=== PATIENT | female | born 1955 | race Caucasian/White ===

== ENCOUNTER 2017-10-20 00:29 | Emergency (ER) | payer OTHER ==
[~2017-10-20 00:29] MED LIST: LORTA5 PO; ORPH100T PO; Z.0.NO CURRENT MEDS
[2017-10-20 00:31] VITALS: BP 149/87; PULSE 78; RESP 18; TEMP 97.7; O2SAT 97
[2017-10-20 03:45] VITALS: BP 177/80; PULSE 73; RESP 16; TEMP 98; O2SAT 100
--- NOTE | 2017-10-20 04:15 | PD ---
HPI Chief Complaint: Injury Time Seen by Provider: 04:11 Travel History International Travel<30 days: No Contact w/Intl Traveler<30days: No Traveled to known affect area: No History of Present Illness HPI 62-year-old female presents to the emergency department from hospital upstairs where she had a non-syncopal accidental slip and fall. Patient states that she fell to her right side and put down her elbow to prevent hitting her head. Patient did not hit her head did not lose consciousness did not injure her neck did not injure her back did not injure her chest did not injure her ribs did not injure her abdomen or pelvis denies shortness of breath and states she landed on her right elbow where she has had previous surgery in May and on her right knee with patient does not have any limitation on range of motion of the elbow and does not notice any swelling and does not note any new distal numbness tingling or weakness although she has had some chronic numbness tingling or weakness although she has had some numbness in the hand prior to and since her elbow surgery in May. Patient denies any knee pain other than it was sore when she transferred from the floor to the wheelchair and then walked to the emergency room. PFSH Past Medical History Narrative Medical Hypertension bilateral elbow surgery knee surgery; nursing notes reviewed Hypertension: Yes Social History Alcohol Use: No Tobacco Use: No Allergies-Medications (Allergen,Severity, Reaction): Coded Allergies: erythromycin base (Unverified Adverse Reaction, Severe, Nausea/Vomiting, ) Reported Meds & Prescriptions Reported Meds & Active Scripts Active Norflex (Orphenadrine Citrate) 100 Mg Nathan 100 Mg PO BID PRN Lortab 5/325 Tab (Hydrocodone-Acetaminophen) 1 Tab Tab 1 Tab PO Q4 PRN Reported No Current Meds (Miscellaneous Medication) Misc Review of Systems Except as stated in HPI: all other systems reviewed are Neg Physical Exam Narrative GENERAL: Well-developed well-nourished female no acute distress no respiratory distress SKIN: Warm and dry. HEAD: Normocephalic. EYES: No scleral icterus. No injection or drainage. NECK: Supple, trachea midline. No JVD or lymphadenopathy. CARDIOVASCULAR: Regular rate and rhythm without murmurs, gallops, or rubs. RESPIRATORY: Breath sounds equal bilaterally. No accessory muscle use. GASTROINTESTINAL: Abdomen soft, non-tender, nondistended. MUSCULOSKELETAL: No cyanosis, or edema. Attention right upper extremity patient has intact elbow flexion extension pronation supination superficial abrasion to the elbow no soft tissue swelling ecchymosis or deformity distally extremity is neurovascular tendon intact capillary refill is less than 2 seconds radial ulnar pulses are 2+ to palpation; attention left knee no ecchymosis no effusion no ballotable effusion no induration no tenderness to palpation intact flexion extension distal extremities neurovascular tendon intact BACK: Nontender without obvious deformity. No CVA tenderness. Data Data Last Documented VS Vital Signs Date Time Temp Pulse Resp B/P (MAP) Pulse Ox O2 Delivery O2 Flow Rate FiO2 10/20/17 03:45 98.0 73 16 177/80 (112) 100 Room Air Orders Orders Ice/Cold Pack (10/20/17 04:11) Knee, Complete (4vws) (10/20/17 ) Elbow, Complete (4 Vws) (10/20/17 ) Splint Or Brace Apply/Monitor (10/20/17 06:29) Ed Discharge Order (10/20/17 06:31) [facility] Medical Decision Making Medical Screen Exam Complete: Yes Emergency Medical Condition: Yes Medical Record Reviewed: Yes Interpretation(s) Last Impressions Knee X-Ray 10/20/17 0000 Signed Impressions: CONCLUSION: No acute abnormality seen. Elbow X-Ray 10/20/17 0000 Signed Impressions: CONCLUSION: Degenerative change with spurring seen throughout the elbow. Elbow effusion. This could be posttraumatic or related to the pre-existing dege nerative change. An occult fracture cannot be excluded. A distinct fracture is not seen. Vital Signs Date Time Temp Pulse Resp B/P (MAP) Pulse Ox O2 Delivery O2 Flow Rate FiO2 10/20/17 03:45 98.0 73 16 177/80 (112) 100 Room Air 10/20/17 00:31 97.7 78 18 149/87 (107) 97 Differential Diagnosis Elbow contusion, fracture, subluxation; knee contusion fracture subluxation Narrative Course Ice pack applied imaging studies ordered Patient informed of imaging results including effusion to the right elbow although patient denies any pain at this time suspicion is low for occult fracture however in view of history of recent surgery will apply sling and encourage patient to follow-up with her orthopedic surgeon and did land call office in a.m. patient is aware of her and is stable for outpatient management Diagnosis Primary Impression: Elbow contusion Qualified Codes: S50.01XA - Contusion of right elbow, initial encounter Additional Impressions: Knee contusion Qualified Codes: S80.01XA - Contusion of right knee, initial encounter Occult fracture of elbow Referrals: Orthopaedic Surgeon 1 day Patient Instructions: General Instructions Additional Instructions: Follow-up with your orthopedic surgeon regarding elbow injury Apply ice intermittently for first 1224 hrs. to elbow Wear sling to right upper extremity May take as tolerated acetaminophen and/or ibuprofen for pain relief Return to the emergency department concerns or change in condition Disposition: 01 DISCHARGE HOME Condition: Stable Maddi Lockett MD Oct 20, 2017 04:15
--- NOTE | 2017-10-20 06:14 | RADRPT ---
EXAM DATE: 10/20/2017 5:40 AM EDT AGE/SEX: 62 years / Female INDICATIONS: Pain post fall. CLINICAL DATA: This is the patient's initial encounter. Patient reports that signs and symptoms have been present for 1 day and indicates a pain score of 10/10. MEDICAL/SURGICAL HISTORY: . . Right knee replaced and right elbow surgery. COMPARISON: No prior [facility] exams available for comparison. FINDINGS: The patient is status post total knee replacement. The prosthetic components appear well placed. A fr acture is not seen. No effusion is seen. CONCLUSION: No acute abnormality seen. Electronically signed by: Fran Humphries MD 10/20/2017 6:12 AM EDT
--- NOTE | 2017-10-20 06:17 | RADRPT ---
EXAM DATE: 10/20/2017 5:42 AM EDT AGE/SEX: 62 years / Female INDICATIONS: Pain post fall. CLINICAL DATA: This is the patient's initial encounter. Patient reports that signs and symptoms have been present for 1 day and indicates a pain score of 10/10. MEDICAL/SURGICAL HISTORY: . . Right knee and right elbow surgery. COMPARISON: No prior [facility] exams available for comparison. FINDINGS: There is degenerative change at the elbow joint with hypertrophic change seen at the distal humerus, at the proximal ulna, and around the radial head. There is a small 0.5 cm bony density seen adjacent to the olecranon likely related to a small loose body. There is minimal hypertrophic change adjacent to the medial condyle. There is an elbow effusion. A fracture is not clearly seen. CONCLUSION: Degenerative change with spurring seen throughout the elbow. Elbow effusion. This could be posttraumatic or related to the pre-existing degenerative change. An oc cult fracture cannot be excluded. A distinct fracture is not seen. Electronically signed by: Fran Humphries MD 10/20/2017 6:16 AM EDT
== END 2017-10-20 07:32 | disposition home or self-care (01) ==
LOC: NEPC 00:29
DX: S50.01XA Contusion of right elbow, initial encounter (principal); S80.01XA Contusion of right knee, initial encounter; I10 Essential (primary) hypertension; W01.0XXA Fall on same level from slipping, tripping and stumbling without subsequent striking against object, initial encounter; Z88.1 Allergy status to other antibiotic agents
CPT/HCPCS: 29240; 73080; 73564

== ENCOUNTER 2018-04-30 11:13 | Inpatient (IN) ==
[2018-04-30] MEDS ORDERED: Chlorhexidine Gluconate 2% 1 Pack (2 Cloths) TOPICAL ONE (12:32)
[2018-04-30] MEDS ORDERED: Metoprolol Tartrate 25 MG Tablet PO ONE (12:32)
[2018-04-30] MEDS ORDERED: Sodium Chlor 0.9% Inj 500 ML IV.SIG SCH (13:00)
[2018-04-30] MEDS ORDERED: ceFAZolin 2 GM Premix Inj 2 GM/50 ML PIGGYBACK IV.SIG SCH (13:00)
[2018-04-30] MEDS ORDERED: Bupivacaine/Epinephrine Inj 0.25% 50 ML Vial ONE (13:28)
[2018-04-30] MEDS ORDERED: ALPRAZolam 0.25 MG Tablet PO PRN (20:05)
[2018-04-30] MEDS: Famotidine 20 MG Tablet PO SCH (21:53)
[2018-04-30] MEDS: traZODone 50 MG Tablet PO SCH (21:53)
[2018-05-01] MEDS ORDERED: Lidocaine PF 1% Inj 5 ML Syringe OTHER ONE (04:57)
[2018-05-01] MEDS ORDERED: Neostigmine Inj 5 MG/5 ML Syringe IV.PUSH ONE (04:57)
[2018-05-01] MEDS ORDERED: Sodium Chlor 0.9% Inj 250 ML IV.CONT ONE (04:57)
[2018-05-01] MEDS ORDERED: Glycopyrrolate Inj 1 MG/5 ML Syringe IV.PUSH ONE (04:57)
[2018-05-01] MEDS ORDERED: Normosol-R pH 7.4 Inj 1,000 ML IV.CONT ONE (04:57)
[2018-05-01] MEDS ORDERED: Sugammadex Inj 200 MG/2 ML Vial IV.PUSH ONE (07:36)
[2018-05-01] MEDS ORDERED: fentaNYL Citrate Inj 100 MCG/2 ML Ampul ONE (07:41)
[2018-05-01] MEDS ORDERED: Bisacodyl 10 MG Supp RECTAL PRN (07:46)
[2018-05-01] MEDS ORDERED: Post-op Orders (for Pharmacy) OTHER ONE (07:46)
[2018-05-01] MEDS ORDERED: Promethazine 25 MG Supp RECTAL PRN (07:46)
[2018-05-01] MEDS ORDERED: ceFAZolin Inj 1,000 MG in Sodium Chlor 0.9% Inj 100 ML IV.SIG SCH (08:00)
[2018-05-01] MEDS ORDERED: *Ondansetron Inj 4 MG/2 ML Vial PERIprocedural Use ONLY ONE (08:08)
[2018-05-01] MEDS ORDERED: *Promethazine Inj 25 MG/ML Vial PERIprocedural use ONLY ONE (08:23)
[2018-05-01] MEDS: Sod Chloride 0.9% Inj 1,000 ML IV.CONT SCH ×2 (08:40→20:21)
[2018-05-01] MEDS ORDERED: *morphine SULFATE 10 MG/ML PERIprocedure ONLY ONE (09:19)
[2018-05-01] MEDS ORDERED: Acetaminophen-HYDROcodone 325/7.5 Liq 15 ML UDC PO PRN (09:30)
[2018-05-01] MEDS: Famotidine 20 MG Tablet PO SCH ×2 (10:01→20:11)
[2018-05-01] MEDS: dilTIAZem CD 240 MG Capsule PO SCH (10:01)
[2018-05-01] MEDS: Senna/Docusate Sodium 8.6/50 MG Tablet PO SCH ×2 (10:01→20:11)
[2018-05-01] MEDS: Gabapentin 300 MG Capsule PO SCH ×3 (10:01→17:30)
[2018-05-01] MEDS: Acetaminophen-HYDROcodone 325/7.5 Liq 15 ML UDC NG/OG PRN ×2 (11:43→17:30)
[2018-05-01] MEDS: ceFAZolin 1 GM Premix Inj 1 GM/50 ML PIGGYBACK IV.SIG SCH ×2 (13:09→20:16)
[2018-05-01] MEDS: Morphine Sulfate Inj 2 MG/ML Vial IV.PUSH PRN ×2 (13:45→20:09)
[2018-05-01] MEDS: Sucralfate Liq 1 GM/10 ML UDC PO SCH ×2 (16:33→20:21)
[2018-05-01] MEDS: traZODone 50 MG Tablet PO SCH (20:12)
[2018-05-02] MEDS: Acetaminophen-HYDROcodone 325/7.5 Liq 15 ML UDC NG/OG PRN ×3 (01:32→15:17)
[2018-05-02] MEDS: ceFAZolin 1 GM Premix Inj 1 GM/50 ML PIGGYBACK IV.SIG SCH (04:45)
[2018-05-02] MEDS: Sod Chloride 0.9% Inj 1,000 ML IV.CONT SCH ×2 (06:31→15:15)
[2018-05-02] MEDS ORDERED: Enoxaparin Inj 40 MG/0.4 ML Syringe SQ SCH (08:00)
[2018-05-02] MEDS ORDERED: Scopalamine 1.5 MG Patch T-DERMAL SCH (09:00)
[2018-05-02] MEDS: Famotidine 20 MG Tablet PO SCH (09:45)
[2018-05-02] MEDS: Gabapentin 300 MG Capsule PO SCH ×2 (09:45→12:40)
[2018-05-02] MEDS: dilTIAZem CD 240 MG Capsule PO SCH (09:45)
[2018-05-02] MEDS: Senna/Docusate Sodium 8.6/50 MG Tablet PO SCH (09:46)
[2018-05-02] MEDS: Sucralfate Liq 1 GM/10 ML UDC PO SCH ×2 (09:55→12:43)
--- NOTE | 2018-05-08 11:29 | MP ---
cc: Missael Gaines MD DATE OF OPERATION: 05/01/2018 PREOPERATIVE DIAGNOSES: 1. Paraesophageal hernia. 2. Reflux unresponsive to medical management. POSTOPERATIVE DIAGNOSES: 1. Paraesophageal hernia. 2. Reflux, unresponsive to medical management. PROCEDURE: Robotic-assisted laparoscopic paraesophageal hernia repair with partial fundoplication, 270-degree wrap. ANESTHESIA: General endotracheal anesthesia. ESTIMATED BLOOD LOSS: Scant. FINDINGS: Moderate-sized paraesophageal hernia with a third of the patient's stomach within the chest. SPECIMENS: None. COMPLICATIONS: None. PREOPERATIVE DIAGNOSIS: 1. Paraesophageal hernia. 2. Reflux, unresponsive to medical management. POSTOPERATIVE DIAGNOSIS: 1. Paraesophageal hernia. 2. Reflux, unresponsive to medical management. PROCEDURE: Robot-assisted laparoscopic paraesophageal hernia repair with partial fundoplication, 270-degree wrap. SURGEON: Missael Gaines MD ANESTHESIA: General endotracheal. ESTIMATED BLOOD LOSS: Scant. FINDINGS: Moderate-size paraesophageal hernia with one-third of the patient's stomach within her chest. SPECIMENS: None. COMPLICATIONS: None. OPERATION: The patient was brought into the operating room and placed on the operating table in a supine position. A bilateral sequential inflation device was placed on the lower extremities. General anesthesia was instituted. Antibiotics were initiated. The abdomen was prepped and draped sterilely. A point 18 cm distal from the xiphoid in the midline was anesthetized with 0.25% Marcaine with epinephrine. A skin incision was made. A 12 mm OptiView port was placed under direct vision and pneumoperitoneum created. Under direct vision a 5 mm left upper quadrant, 8 mm robotic left upper quadrant, 8 mm robotic port in the right upper quadrant and a 5 mm port placed in the right upper quadrant. Prior to placement of all ports the skin and peritoneum were anesthetized with 0.25% Marcaine with epinephrine. The patient was placed in reverse Trendelenburg position left side up. A Zayra-Flex retractor was placed. The left lobe of the liver was retracted. Findings as above. A 3-0 silk suture was placed into the abdominal cavity as well as a Baxter drain and Ray-Roselia gauze. At this point the laparoscopic tower was removed from the patient's bedside and a da Lisa robot was docked at the patient's bedside. I then broke scrub and went to the console. The hepatogastric ligament was then opened. The stomach was retracted into the abdominal cavity. The left crura of the diaphragm was dissected inferiorly. A Ria drain was placed around the stomach to retract it into the abdominal cavity further. The crura of the diaphragm was dissected anteriorly and posteriorly both left and right. The hernia sac was retracted into the abdominal cavity. The hernia sac was excised. The GE junction was mobilized into the abdominal cavity, dissected out the distal esophagus and the mediastinum. The crura of the diaphragm was approximated with 0 silk suture in a [id number] manner. Three interrupted stitches were placed inferiorly. The da Lisa robot was then undocked. The laparoscopic tower was connected and brought back to bedside. The Baxter and gauze was removed from the abdominal cavity. The operative field inspected and hemostasis was present. The CO2 was released, all ports were removed. All skin incisions were closed with 4-0 Monocryl. The abdominal wall was cleaned and a sterile dressing placed. The patient was awakened and taken to the recovery room. All instrument and sponge counts were reported as correct at the end of the procedure. MD PAVEL Pearson/gale/rogerio , 11:04 AM , 11:09 AM
== END 2018-05-02 15:59 | disposition home or self-care (01) | DRG 328 ==
LOC: HSDI 11:13 → INTOOBSV 11:13 → N07 19:34
PROVIDERS: ADMIT Surgery; ATTEND Surgery